=== PATIENT | female | born 1970 | race Caucasian/White ===

== ENCOUNTER 2017-04-03 19:16 | Emergency (ER) | payer SELFPAY | END 2017-04-03 21:50 | disposition left against medical advice (07) | LOC: ER1 19:16 | DX: R10.9 Unspecified abdominal pain (principal); R11.0 Nausea; R19.5 Other fecal abnormalities; Z53.21 Procedure and treatment not carried out due to patient leaving prior to being seen by health care provider | CPT/HCPCS: 81001; 87086 ==

== ENCOUNTER 2017-04-06 20:05 | Emergency (ER) | payer SELFPAY ==
[2017-04-06 22:19] LABS: HEMOGLOBIN 13.3 gm/dl (12.3-15.3); RED BLOOD COUNT 4.17 M/UL (4.00-5.10)
[2017-04-06 22:38] LABS: BUN/CREATININE RATIO 22 (0-10)
== END 2017-04-07 01:16 | disposition home or self-care (01) ==
LOC: ER1 20:05
PROVIDERS: Specialist/Technologist Athletic Trainer
DX: R10.32 Left lower quadrant pain (principal); K62.5 Hemorrhage of anus and rectum; F17.210 Nicotine dependence, cigarettes, uncomplicated; Z90.49 Acquired absence of other specified parts of digestive tract; Z90.710 Acquired absence of both cervix and uterus
CPT/HCPCS: 36415; 80053; 81001; 82150; 83605; 83690; 85025; 96374; 99284; J2405; J7040; J7050; Q9962